=== PATIENT | male | born 1960 | race Caucasian/White ===

== ENCOUNTER 2018-08-12 13:35 | Emergency (ER) | payer SELFPAY ==
[2018-08-12] MEDS: HYDROCODONE/APAP (10/325) TAB PO (18:19)
[2018-08-12] MEDS: CYCLOBENZAPRINE 10 MG TAB PO (18:19)
== END 2018-08-12 19:21 | disposition home or self-care (01) ==
LOC: E/R 13:35
DX: M50.20 Other cervical disc displacement, unspecified cervical region (principal); F17.210 Nicotine dependence, cigarettes, uncomplicated; R20.2 Paresthesia of skin; R05 Cough
CPT/HCPCS: 71045; 72141; 99284-25

== ENCOUNTER 2018-08-28 11:58 | Emergency (ER) | payer SELFPAY ==
[2018-08-28] MEDS: KETOROLAC 30 MG INJ IM (14:20)
[2018-08-28] MEDS: DEXAMETHASONE 10 MG/ML 1 ML INJ IM (14:20)
== END 2018-08-28 15:03 | disposition home or self-care (01) ==
LOC: FTE 11:58
DX: M25.561 Pain in right knee (principal); F17.210 Nicotine dependence, cigarettes, uncomplicated; M25.562 Pain in left knee; M79.632 Pain in left forearm
CPT/HCPCS: 96372; 99284-25

== ENCOUNTER 2018-09-19 14:51 | Emergency (ER) | payer SELFPAY | END 2018-09-19 18:45 | disposition home or self-care (01) | LOC: FTE 14:51 | DX: M54.42 Lumbago with sciatica, left side (principal); F17.210 Nicotine dependence, cigarettes, uncomplicated | CPT/HCPCS: 99282 ==

== ENCOUNTER 2018-09-20 13:07 | Emergency (ER) | payer MEDICAID ==
[2018-09-20] MEDS: DEXAMETHASONE 10 MG/ML 1 ML INJ IM (16:06)
[2018-09-20] MEDS: KETOROLAC 60 MG INJ IM (16:06)
== END 2018-09-20 16:17 | disposition home or self-care (01) ==
LOC: FTE 13:07
DX: M54.16 Radiculopathy, lumbar region (principal); F17.210 Nicotine dependence, cigarettes, uncomplicated
CPT/HCPCS: 72131; 96372; 99285-25

== ENCOUNTER 2018-09-25 00:48 | Inpatient (IN) | payer MEDICAID ==
[2018-09-25] MEDS: SOD CHLORIDE 0.9% 1,000 ML IV ×3 (03:30→19:07)
[2018-09-25] MEDS: KETOROLAC 15 MG INJ IV (03:30)
[2018-09-25 03:32] LABS: ADD MAN DIFF? NO
[2018-09-25 03:53] LABS: ANION GAP 9 (5-13); BLOOD UREA NITROGEN 19 mg/dl (7-20); CALCIUM 9.2 mg/dl (8.4-10.2); CARBON DIOXIDE 28 mmol/L (21-31); CHLORIDE 105 mmol/L (97-110); CREATININE 0.69 mg/dl (0.61-1.24); Estimated GFR > 60 mL/min (>60); GLUCOSE 126 mg/dl (70-220); POTASSIUM 3.7 mmol/L (3.5-5.1); SODIUM 142 mmol/L (135-144)
[2018-09-25 03:58] LABS: BASOPHILS % 0.3 % (0.0-2.0); EOSINOPHILS # 0.2 10^3/ul (0.0-0.5); EOSINOPHILS % 1.6 % (0.0-7.0); HEMATOCRIT 41.3 % (42.0-52.0); HEMOGLOBIN 13.5 g/dl (14.0-18.0); LYMPHOCYTES # 1.5 10^3/ul (0.8-2.9); LYMPHOCYTES % 13.4 % (15.0-51.0); MEAN CORPUSCULAR HEMOGLOBIN 26.9 pg (29.0-33.0); MEAN CORPUSCULAR HGB CONC 32.7 g/dl (32.0-37.0); MEAN CORPUSCULAR VOLUME 82.4 fl (82.0-101.0); MEAN PLATELET VOLUME 10.3 fl (7.4-10.4); MONOCYTES % 8.7 % (0.0-11.0); NEUTROPHIL # 8.3 10^3/ul (1.6-7.5); NEUTROPHILS % 75.5 % (39.0-77.0); PLATELET COUNT 274 10^3/UL (140-415); RED BLOOD COUNT 5.01 10^6/ul (4.70-6.10); RED CELL DISTRIBUTION WIDTH 13.3 % (11.5-14.5)
[2018-09-25 04:25] LABS: INR 0.96; PROTIME 12.9 Sec (11.9-14.9)
[2018-09-25 04:26] LABS: PARTIAL THROMBOPLASTIN TIME 25.9 Sec (23.0-35.0)
[2018-09-25] MEDS: LORAZEPAM 0.5 MG TAB PO (04:50)
[2018-09-25] MEDS ORDERED: DOCUSATE SODIUM 100 MG CAP PO (05:00)
[2018-09-25] MEDS ORDERED: ONDANSETRON 4 MG INJ IV (05:00)
[2018-09-25] MEDS ORDERED: NACL 0.9% 3 ML SYG IV (05:00)
[2018-09-25] MEDS ORDERED: BISACODYL (EC) 5 MG TAB PO (05:00)
[2018-09-25] MEDS: ALPRAZOLAM 0.25 MG TAB PO (20:04)
[2018-09-25] MEDS: ACETAMINOPHEN 325 MG TAB PO (20:04)
[2018-09-26 05:39] LABS: ADD MAN DIFF? NO; BASOPHILS % 0.1 % (0.0-2.0); EOSINOPHILS # 0.3 10^3/ul (0.0-0.5); EOSINOPHILS % 2.2 % (0.0-7.0); HEMATOCRIT 38.3 % (42.0-52.0); HEMOGLOBIN 12.6 g/dl (14.0-18.0); LYMPHOCYTES # 1.7 10^3/ul (0.8-2.9); MEAN CORPUSCULAR HEMOGLOBIN 27.2 pg (29.0-33.0); MEAN CORPUSCULAR HGB CONC 32.9 g/dl (32.0-37.0); MEAN CORPUSCULAR VOLUME 82.5 fl (82.0-101.0); MEAN PLATELET VOLUME 10.4 fl (7.4-10.4); MONOCYTES % 8.8 % (0.0-11.0); NEUTROPHIL # 8.4 10^3/ul (1.6-7.5); NEUTROPHILS % 73.4 % (39.0-77.0); PLATELET COUNT 257 10^3/UL (140-415); RED BLOOD COUNT 4.64 10^6/ul (4.70-6.10); RED CELL DISTRIBUTION WIDTH 13.4 % (11.5-14.5)
[2018-09-26 05:39] LABS: WHITE BLOOD COUNT 11.4 10^3/ul (4.8-10.8)
[2018-09-26 06:10] LABS: ALANINE AMINOTRANSFERASE 29 IU/L (13-69); ALBUMIN 3.6 g/dl (3.3-4.9); ALBUMIN/GLOBULIN RATIO 1.38; ALKALINE PHOSPHATASE 74 IU/L (42-121); ANION GAP 7 (5-13); ASPARTATE AMINO TRANSFERASE 20 IU/L (15-46); BILIRUBIN,INDIRECT 0.6 mg/dl (0-1.1); BILIRUBIN,TOTAL 0.6 mg/dl (0.2-1.3); BLOOD UREA NITROGEN 12 mg/dl (7-20); CALCIUM 8.8 mg/dl (8.4-10.2); CARBON DIOXIDE 27 mmol/L (21-31); CHLORIDE 108 mmol/L (97-110); CREATININE 0.68 mg/dl (0.61-1.24); Estimated GFR > 60 mL/min (>60); GLUCOSE 104 mg/dl (70-220); POTASSIUM 3.8 mmol/L (3.5-5.1); SODIUM 142 mmol/L (135-144); TOTAL PROTEIN 6.2 g/dl (6.1-8.1)
[2018-09-26] MEDS: SOD CHLORIDE 0.9% 1,000 ML IV ×3 (08:18→23:40)
[2018-09-27 05:46] LABS: ADD MAN DIFF? NO
[2018-09-27 05:48] LABS: BASOPHILS % 0.3 % (0.0-2.0); EOSINOPHILS # 0.3 10^3/ul (0.0-0.5); EOSINOPHILS % 2.3 % (0.0-7.0); HEMATOCRIT 41.3 % (42.0-52.0); HEMOGLOBIN 13.5 g/dl (14.0-18.0); LYMPHOCYTES # 1.6 10^3/ul (0.8-2.9); LYMPHOCYTES % 14.1 % (15.0-51.0); MEAN CORPUSCULAR HEMOGLOBIN 27.2 pg (29.0-33.0); MEAN CORPUSCULAR HGB CONC 32.7 g/dl (32.0-37.0); MEAN CORPUSCULAR VOLUME 83.3 fl (82.0-101.0); MEAN PLATELET VOLUME 10.2 fl (7.4-10.4); MONOCYTE # 1.2 10^3/ul (0.3-0.9); MONOCYTES % 10.2 % (0.0-11.0); NEUTROPHIL # 8.3 10^3/ul (1.6-7.5); NEUTROPHILS % 72.5 % (39.0-77.0); PLATELET COUNT 271 10^3/UL (140-415); RED BLOOD COUNT 4.96 10^6/ul (4.70-6.10); RED CELL DISTRIBUTION WIDTH 13.2 % (11.5-14.5)
[2018-09-27 05:48] LABS: WHITE BLOOD COUNT 11.4 10^3/ul (4.8-10.8)
[2018-09-27] MEDS: SOD CHLORIDE 0.9% 1,000 ML IV (22:29)
== END 2018-09-28 13:40 | disposition home or self-care (01) | DRG 551 ==
LOC: E/R 00:48 → 2NE 03:33
DX: M50.121 Cervical disc disorder at C4-C5 level with radiculopathy (principal); G95.19 Other vascular myelopathies; Z59.0 Homelessness; F41.9 Anxiety disorder, unspecified; Z87.891 Personal history of nicotine dependence; M51.16 Intervertebral disc disorders with radiculopathy, lumbar region; G62.9 Polyneuropathy, unspecified; F32.9 Major depressive disorder, single episode, unspecified
CPT/HCPCS: 36415; 72141; 80048; 80053; 85025; 85610; 85730; 96374; 97161; 97167; 99285-25